=== PATIENT | female | born 1950 | race Caucasian/White ===

== ENCOUNTER 2017-11-18 18:22 | Emergency (ER) | payer OTHER ==
--- NOTE | 2017-11-18 19:05 | ED Physician Documentation ---
PD HPI Fall - Stated complaint Stated Complaint: HEAD INJURY - Chief complaint Chief Complaint: General - History obtained from History obtained from: Patient - History of Present Illness Mechanism of injury: Tripped (over leaf blower and fell, striking forehead.) Fall distance: Standing position Where injury occurred: Home Timing - onset: Today Injury(ies) location: Head. No: Neck, Chest, Abdomen Associated symptoms: No: LOC, AMS, Amnesia, Neck pain, Weakness Worsens with: Palpation Contributing factors: Anticoagulated (due to remote history of PEs.). No: Intoxicated Similar symptoms before: Has not had sx before Recently seen: Not recently seen Review of Systems Constitutional: denies: Fever Eyes: denies: Loss of vision, Decreased vision Nose: denies: Rhinorrhea / runny nose, Congestion Throat: denies: Sore throat Cardiac: denies: Chest pain / pressure Respiratory: denies: Cough GI: denies: Abdominal Pain, Nausea, Vomiting Skin: reports: Abrasion (s). denies: Laceration (s) Musculoskeletal: denies: Neck pain, Back pain Neurologic: reports: Headache (just at local injury). 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 Pt is currently on anticoagulants. - Past Surgical History Past Surgical History: Yes - Present Medications Home Medications: Ambulatory Orders Medication Instructions Recorded Confirmed Calcium Carbonate [Tums (Calcium 11/18/17 Carbonate 500mg)] Gluc Jeffery Dipo Ch/Leeroy Jeffery/C/Idris 11/18/17 11/18/17 [Glucosamine-Chondroitin Capsul] Lovastatin 11/18/17 Meclizine [Antivert] 11/18/17 Omeprazole [PriLOSEC] 11/18/17 Rivaroxaban [Xarelto] 11/18/17 - Allergies Allergies/Adverse Reactions: Allergies Allergy/AdvReac Type Severity Reaction Status Date / Time No Known Drug Allergies Allergy Verified 11/18/17 18:30 - Social History Does the pt smoke?: No Smoking Status: Never smoker Does the pt drink ETOH?: Yes Does the pt have substance abuse?: No - Immunizations Immunizations are current?: Yes - POLST Patient has POLST: No PD ED PE NORMAL - Vitals Vital signs reviewed: Yes - General General: Alert and oriented X 3, No acute distress, Well developed/nourished - HEENT HEENT: PERRL, EOMI, Ears normal, Pharynx benign, Other (right forehead with local area of swelling and tenderness with minimal skin abrasion. ) - Neck Neck: Supple, no meningeal sign, No bony TTP, No adenopathy - Cardiac Cardiac: RRR, No murmur - Respiratory Respiratory: Clear bilaterally - Derm Derm: Normal color, Warm and dry - Extremities Extremities: No tenderness to palpate, Normal ROM s pain - Neuro Neuro: Alert and oriented X 3, sack sewer 2-12 intact, No motor deficit, No sensory deficit, Normal speech, Other Eye Opening: Spontaneous Motor: Obeys Commands Verbal: Oriented GCS Score: 15 Results - Vitals Vitals: Oxygen O2 Source Room air PD MEDICAL DECISION MAKING - ED course Complexity details: reviewed results, re-evaluated patient (still appears okay. ), considered differential (patient appears well with forehead contusion but normal neuro. Is on anticoagulant so CT obtained and appears normal. ), d/w patient Departure - Departure Disposition: 01 Home, Self Care Clinical Impression: Anticoagulant long-term use Accidental fall Qualifiers: Encounter type: initial encounter Qualified Code(s): W19.XXXA - Unspecified fall, initial encounter Head contusion Qualifiers: Encounter type: initial encounter Contusion of head detail: scalp Qualified Code(s): S00.03XA - Contusion of scalp, initial encounter Condition: Stable Record reviewed to determine appropriate education?: Yes Instructions: ED Contusion Scalp Comments: Continue usual medications. Tylenol if needed for pains. Your head CT appears normal without any signs of bleeding. Return if you have diffuse headache, confusion, blurred vision, repetitive vomiting or other signs of head injury. These are unlikely at this point. Discharge Date/Time: 11/18/17 20:05
--- NOTE | 2017-11-18 19:58 | CT Report ---
EXAM: CT HEAD EXAM DATE: 11/18/2017 07:33 PM. CLINICAL HISTORY: Fell and struck head. On Xarelto. COMPARISON: None. TECHNIQUE: Multiaxial CT images were obtained from the foramen magnum to the vertex. Reformats: Coron al. IV contrast: None. In accordance with CT protocol optimization, one or more of the following dose reduction techniques w ere utilized for this exam: automated exposure control, adjustment of mA and/or KV based on patient s ize, or use of iterative reconstructive technique. FINDINGS: Parenchyma: No intraparenchymal hemorrhage. No evidence of mass, midline shift, or CT findings of inf arction. Reddy-white differentiation is distinct. Extraaxial Spaces: Normal for age. No subdural or epidural collections identified. Ventricles: Normal in size and position. Sinuses and Orbits: Imaged paranasal sinuses, orbits, and mastoids show no significant abnormality. Bones: No evidence of fracture or calvarial defect. Other: None. IMPRESSION: Normal head CT. [facility] Referring Provider Line: [phone] SITE ID: [id number]
[2017-11-18 20:06] VITALS: BP 146/83
== END 2017-11-18 20:05 | disposition home or self-care (01) ==
LOC: ED 18:22
DX: S00.83XA Contusion of other part of head, initial encounter (principal); W01.198A Fall on same level from slipping, tripping and stumbling with subsequent striking against other object, initial encounter; Y92.007 Garden or yard of unspecified non-institutional (private) residence as the place of occurrence of the external cause; Z86.711 Personal history of pulmonary embolism; Z79.01 Long term (current) use of anticoagulants
CPT/HCPCS: 70450; 99283